=== PATIENT | male | born 1965 | race Caucasian/White ===

== ENCOUNTER 2023-05-14 10:34 | Inpatient (IN) | payer OTHER, SELFPAY ==
[2023-05-14] VITALS (30 sets, daily range): BP systolic 77–160; BP diastolic 45–87; PULSE 64–79; RESP 14–25; TEMP 36.5–36.8; O2SAT 95–100; BMI 27.8
--- NOTE | 2023-05-14 | ECHO_ITS ---
Patient Info Name: Elie Ayers Age: 57 years : 1965 Gender: Male Ht: 73 in Wt: 205 lbs BSA: 2.20 m2 HR: 78 bpm BP: 134 / 70 mmHg Heart Rhythm: Sinus Rhythm Technical Quality: Fair Exam Date: 05/14/2023 3:52 PM Exam Location: Echo Lab Exam Room: ICU2 Patient Status: Inpatient Admit Date: 05/14/2023 Staff Ordering Physician: Sung Nieves MD Machine Operators: Vinita Crooks RDCS Attending Provider: Sami Ewing MD Exam Type: CA echo doppler color flow Study Info Indications - CHEST STEMI S/P CATH Complete two-dimensional, color flow and Doppler transthoracic echocardiogram is performed. Summary 1. Complete two-dimensional, color flow and Doppler transthoracic echocardiogram is performed. 2. Normal left ventricular size with normal global systolic function. 3. Hypokinesia of the apical anterior wall and apex. 4. No valvular dysfunction. Left Ventricle Left ventricular chamber dimension is normal. Left ventricular systolic function is normal, estimated at 50-55%. The left ventricular diastolic function is grade I diastolic dysfunction. Right Ventricle Right ventricular chamber dimension is normal. Left Atria Left atrial chamber dimension is normal. Right Atria Right atrial chamber dimension is normal. Aortic Valve The aortic valve is normal. Pulmonic Valve The pulmonic valve is normal. Mitral Valve The mitral valve has normal leaflets. Tricuspid Valve The tricuspid valve leaflets are normal. Pericardium/Pleural The pericardium appears normal. Aorta The aortic root size at the sinus of Valsalva is normal. Left Ventricular Outflow Tract Name Value Normal LVOT 2D LVOT Diameter 2.1 cm LVOT Doppler LVOT Peak Gradient 5 mmHg LVOT Mean Gradient 2 mmHg LVOT VTI 21 cm LVOT VTI/AV VTI Ratio 0.8 LVOT Stroke Volume 70 ml LVOT CO 14.8 l/min LVOT CI 6.7 l/min/m2 Pulmonic Valve Name Value Normal RVOT Doppler RVOT Peak Gradient 2 mmHg PV Doppler PV Peak Gradient 3 mmHg Mitral Valve Name Value Normal MV Doppler MV Decel [place] 249 cm/s2 MV PHT 76 ms MV Area (PHT) 2.9 cm2 4.0-5.0 MV Diastolic Function MV E Peak Velocity 65 cm/s MV A Peak Velocity
--- NOTE | 2023-05-14 10:31 | ECG_ITS ---
Rate CT QRSd QT QTc P QRS T Severity 61 144 89 392 398 56 7 32 No Severity Defined SINUS RHYTHM DELAYED PRECORDIAL R/S TRANSITION ST ELEVATION IN ANTEROLAT/INF LEADS- PROBABLY EARLY REPOLARIZATION ABNORMALITY BASELINE ARTIFACT- I, II, III, AVR, AVL BORDERLINE ECG Electronically Signed On 05-14-2023 11:45:37 DIGITAL ARCHIVIST by Kenny Naranjo D.O. NO PREVIOUS ECG AVAILABLE FOR COMPARISON [id number] MTDD
[2023-05-14] MEDS: HEPARIN SODIUM 5,000 UNITS/ML VIAL 4000 UNITS IV PUSH (10:38)
--- NOTE | 2023-05-14 10:44 | PC.NURSE ---
chest pressure incresing to 4/10
--- NOTE | 2023-05-14 10:45 | ECG_ITS ---
Measurements Intervals [place] Rate: 81 P: 66 NV: 153 QRS: -20 QRSD: 133 T: 91 QT: 343 QTc: 400 Interpretive Statements SINUS RHYTHM VENTRICULAR COUPLET AND FREQUENT VENTRICULAR PREMATURE COMPLEXES INTRAVENTRICULAR CONDUCTION DELAY ANTEROLATERAL ST ELEVATION MYOCARDIAL INJURY- ACUTE BASELINE WANDER- I, II, AVR, AVL, AVF, V1-V6 ABNORMAL ECG COMPARED TO ECG 05/14/2023 10:31:46 INTRAVENTRICULAR CONDUCTION DELAY NOW PRESENT ACUTE ANTEROLATERAL INFARCT NOW PRESENT Electronically Signed On 05-14-2023 14:02:08 CLINICAL NURSING INTERN by Kenny Naranjo D.O.
--- NOTE | 2023-05-14 10:49 | PC.NURSE ---
pt c/o increased cp. sr with runs of v tach noted on monitor. bp 69/49
--- NOTE | 2023-05-14 10:50 | ED.CHESTPAIN ---
HPI - Chest Pain General Chief Complaint: Chest Pain Stated Complaint: stemi Time Seen by Provider: 05/14/23 10:34 History of Present Illness HPI narrative: Patient is a 57-year-old male who presents ER with concerns for STEMI. 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 Impression some his chest. Associated with diaphoresis and nausea. EMS with pre-hospital activation given significant ST elevation in the precordial leads. Patient did receive nitroglycerin and pain resolved in ST elevations began to improve. STEMI was activated in the ER and catheterization team at bedside. Subsequent EKG shows normal sinus rhythm without ST elevation. Possible vasospasm. Patient without pain at this time. Related Data Home Medications Medication Instructions Recorded Confirmed aspirin 81 mg capsule,delayed 81 mg PO DAILY 05/14/23 05/14/23 release insulin glargine 100 unit/mL 15 unit subcut BID 05/14/23 05/14/23 subcutaneous solution (Lantus U-100 Insulin) insulin lispro-aabc 100 unit/mL 1 sliding scale dose subcut 05/14/23 05/14/23 subcutaneous solution (Lyumjev USEASDIRECTD U-100 Insulin) Allergies Allergy/AdvReac Type Severity Reaction Status Date / Time No Known Allergies Allergy Verified 05/14/23 10:38 Review of Systems Review of Systems: All systems reviewed & are unremarkable except as noted in HPI and below Constitutional: Constitutional: Denies chills, Denies fatigue and Denies fever(s) Comments: + diaphoresis ENT: Denies nasal congestion and Denies sore throat Cardiovascular: Cardiovascular: Reports chest pain, Denies rapid heart rate and Denies radiating jaw, neck or arm pain Respiratory: Respiratory: Denies cough and Denies dyspnea Gastrointestinal: Gastrointestinal: Denies abdominal pain, Reports nausea and Denies vomiting [facility] Past Medical History Medical History (Updated 05/14/23 @ 18:19 by Jayme Falcon MD) Diabetes mellitus Surgical History Surgical History (Updated 05/14/23 @ 18:16 by Jayme Falcon MD) No pertinent past surgical history Social History Social History Smoking status: Never smoker Alcohol intake: current Drinks per week: 1 Lack of Transportation: No Lack of Food: Never True Current Housing: I Have Housing Concerned About Future Housing: No Difficulty Paying Gas/Electric Bills: No Difficulty Paying for Meds: No Currently Unemployed: No Education: Trade/Vocational Certificate Difficulty w/ Childcare or Family Care: No Spiritual care concerns: No Exam Narrative: GENERAL: Well-appearing, well-nourished, and in no acute distress. HEAD: Normocephalic, atraumatic. ENT: Mucous membranes moist. NECK: Supple. CHEST: Clear to auscultation. No respiratory distress. HEART: Regular rate and rhythm. Normal peripheral pulses. ABDOMEN: Soft, nontender, nondistended. EXTREMITIES: Normal range of motion. No edema. SKIN: Warm, dry, no rash. NEURO: Alert and oriented x3. PSYCH: Normal mood and affect. Course Course Emergency Course: Patient was initially resting comfortably and in no distress. Suddenly he had return of chest discomfort became ashen and pale. He was hypotensive. Repeat EKG showing STEMI and patient also began having runs of V-tach that would self resolve. Code STEMI called again and patient taken to metallurgical laboratory assistant. Patient did receive heparin 4000 units as well as oral aspirin by EMS. Care discussed with both the rn observation and the cardiology team. Vital Signs Vital signs: Vital Signs Temperature 97.7 F 05/14/23 10:30 Pulse Rate 74 05/14/23 10:30 Respiratory Rate 18 05/14/23 10:30 Blood Pressure 133/87 05/14/23 10:30 Pulse Oximetry 98 05/14/23 10:30 Oxygen Delivery Room Air 05/14/23 10:30 Temperature 97.9 F 05/14/23 13:15 Pulse Rate 76 05/14/23 18:00 Respiratory Rate 15 05/14/23 18:00 Blood Pressure 142/77 H 05/14/23 18:0
--- NOTE | 2023-05-14 10:53 | PC.NURSE ---
tombstones noted on monitor. bp 86/53. additional ns bolus hung and infusing without difficulty placed 15 l nrb. pts contacted on pts cell phone and made aware of pts status. instructed to come to icu waiting room upon arrival.
[2023-05-14 11:18] LABS: Basophils Absolute Auto 0.1 K/mm3 (0.0-0.1); Basophils Percent Auto 0.9 % (0.2-1.2); Eosinophils Absolute Auto 0.1 K/mm3 (0-0.3); Hematocrit 44.6 % (42.0-52.0); Hemoglobin 14.9 g/dL (14.0-18.0); Immature Granulocyte Absolute 0.01 K/mm3 (0.00-0.031); Immature Granulocyte Percent A 0.2 % (0-0.5); Lymphocytes Percent Auto 35.9 % (18.3-44.2); Mean Corpuscular HGB Conc 33.4 g/dl (32-36); Mean Corpuscular Hemoglobin 31.1 pg (26-34); Mean Corpuscular Volume 93.1 fl (80-100); Mean Platelet Volume 10.2 fl (7.4-10.4); Monocytes Absolute Auto 0.5 K/mm3 (0.1-0.6); Monocytes Percent Auto 7.9 % (2.6-8.5); Neutrophils Absolute Auto 3.2 K/mm3 (1.3-6.7); Neutrophils Percent Auto 54.1 % (45.5-73.1); Platelet Count Result 260 k/mm3 (150-375); Red Blood Count 4.79 M/mm3 (4.6-6.20); Red Cell Distribution Width 12.1 % (11.5-14.5); White Blood Count 5.9 K/mm3 (4.5-10.0)
[2023-05-14 11:28] LABS: Prothrombin Time 13.1 Seconds (11.1-14.7)
[2023-05-14 11:29] LABS: Alanine Aminotransferase 29 U/L (6-50); Albumin Level 4.1 g/dL (3.5-5.1); Alkaline Phosphatase 92 U/L (38-126); Anion Gap 10 mmol/L (8-16); Aspartate Amino Transferase 32 U/L (17-59); Bilirubin,Total 0.6 mg/dL (0.2-1.3); Blood Urea Nitrogen 12 mg/dL (9-20); Calcium 8.6 mg/dL (8.4-10.2); Carbon Dioxide 21 mmol/L (22-30); Chloride 105 mmol/L (98-107); Cholesterol 250 mg/dL (0-200); Estimated CRCL calculation 92 ml/min; Estimated Glomerular Filt Rate > 60; Glucose 253 mg/dL (65-110); HDL Direct 59 mg/dL; Partial Thromboplastin Time 28.1 SECONDS (22.3-36.8); Potassium 3.9 mmol/L (3.4-5.0); Sodium 136 mmol/L (137-145); Triglycerides 66 mg/dL (<150)
--- NOTE | 2023-05-14 11:32 | ECG_ITS ---
Measurements Intervals [place] Rate: 61 P: 56 RI: 144 QRS: 7 QRSD: 89 T: 32 QT: 392 QTc: 398 Interpretive Statements SINUS RHYTHM DELAYED PRECORDIAL R/S TRANSITION BASELINE ARTIFACT- I, II, III, AVR, AVL BORDERLINE ECG NO PREVIOUS ECG AVAILABLE FOR COMPARISON Electronically Signed On 05-14-2023 11:42:07 BLOW MACHINE TENDER STARCH SPRAYING by Kenny Naranjo D.O.
--- NOTE | 2023-05-14 11:33 | ECG_ITS ---
Measurements Intervals [place] Rate: 69 P: 47 ND: 143 QRS: 25 QRSD: 99 T: 34 QT: 385 QTc: 413 Interpretive Statements SINUS RHYTHM DELAYED PRECORDIAL R/S TRANSITION BORDERLINE ST ABNORMALITY- HIGH LATERAL LEADS BORDERLINE ECG COMPARED TO ECG 05/14/2023 10:45:47 STEMI RESOLVED VENTRICULAR ECTOPICS RESOLVED Electronically Signed On 05-14-2023 14:03:23 TRANSFUSION NURSE by Kenny Naranjo D.O.
--- NOTE | 2023-05-14 11:39 | WPDCARDPROC ---
Cardiac Cath Procedure Note Date of procedure:: 05/14/23 Performing physician:: Sami Ewing MD Indication:: anterior ST-elevation NV Brief clinical history:: this is a 57-year-old man without previous cardiac history. He he does have established diagnosis of diabetes. The patient was brought to the hospital by EMS because of significant chest pain that began this morning. ECG in the field showed impressive anterior current of injury. He was given nitroglycerin on route to the hospital and by report his symptoms resolved and his ECG on arrival here was unremarkable. STEMI was initially declared in the canceled when his ECG normalized. While in the emergency room he began to have recurrent chest pain and recurrent ST segment elevation and so STEMI was again reactivated. Because of this there was some delay in bringing him to the oven laborer Procedure Procedure performed:: emergency coronary angiography emergency PCI (ANNEMARIE) to the proximal LAD left ventriculography Sedation/Medication given:: no sedation administered Access site:: right femoral artery Estimated blood loss:: 25 cc Procedure note:: patient was brought to the cardiac oven laborer in the emergent setting described above. The right femoral triangle was prepped and draped in the usual fashion. Anesthesia was provided with 1% lidocaine infiltrated locally. Using the modified Seldinger technique the femoral artery was punctured and a 6 [place] vascular sheath was placed. After this I used a 6 [place] CLS 3.5 guiding catheter to engage inject the left coronary artery. After the 2nd injection of the left coronary the patient did go into pulseless sustained ventricular tachycardia. This was terminated with 2 shocks at 200 joule. Following this further angiography was performed of the left coronary and emergency PCI was carried out of the proximal LAD as detailed below. Prior to PCI the patient was given 180 mg of oral Brilinta and was systemically anticoagulated with bolus and infusion of Angiomax. He had received a loading dose of aspirin in the emergency room. Following completion of PCI to the LAD as described below the guiding catheter was withdrawn and a 5 [place] JR4 catheter was used to engage inject the right coronary artery in orthogonal projections. Following this a 5 [place] angled pigtail catheter was used to perform left ventriculography in the 30 degree LANDERS projection. The sheath was then sutured into position the patient was taken to the ICU for post mi/PCI recovery. Patient had no evidence of a groin hematoma upon leaving the cardiac catheterization lab. Findings:: Hemodynamics: The central aortic pressure was 145 over 76 left ventricle 145/88 end-diastolic pressure 20 there is no gradient on pullback across the aortic valve. Left ventricle: The LV is of normal size the anterior wall, apex and anterolateral segments are markedly hypodynamic the global ejection fraction is 35% by visual estimation. The left main coronary artery is short and nicely patent the left anterior descending is a large caliber vessel extending down to the apex. There is a subtotal stenosis of 99% in the LAD shortly after the ostium. The remainder of the LAD is free of significant disease. There is ROBERT 2 flow in the vessel at the time of initial angiography. The circumflex is a medium caliber vessel giving rise to 1 significant marginal branch the circumflex system is free of significant disease. The right coronary artery is large caliber dominant to the posterior circulation. The right coronary artery has minimal luminal irregularities but no angiographically significant disease. Intervention: The left coronary artery was engaged using a 6 [place] CLS 3.5 guiding catheter. I used a 0.014 BMW coronary wire advancing through the proximal LAD advancing the wire down into the apical segment of the LAD. The lesion was pre-dilated using a 3.5 x 20 mm Lino balloon
[2023-05-14 11:41] LABS: LDL Cholesterol Direct 147 mg/dL
[2023-05-14 11:49] LABS: Troponin I 0.745 ng/mL (0.000-0.034)
--- NOTE | 2023-05-14 11:54 | ADMGEN ---
This patient, Elie Ayers, was admitted to Intensive Care Unit-2. Patient/family oriented to hospital policies and general routines including ID bracelet, bed and alarms, visiting hours, pain management, procedures, bathroom and other care routines, personal items, smoking policy, room service/diet, and visiting hours. Information on how to activate the Rapid Response Team has been discussed. Patient/Family are encouraged to report perceived risks to care and to ask questions if they do not understand what they are told or what they should do.
--- NOTE | 2023-05-14 11:56 | WPDCNINT ---
Assessment and Plan Assessment and plan (1) STEMI (ST elevation myocardial infarction): Code(s): I21.3 - ST elevation (STEMI) myocardial infarction of unspecified site Status: Acute Assessment and Plan: Status post PCI and drug-eluting stent placement to LAD Aspirin, losartan, on beta-naila, Brilinta, Aldactone, rosuvastatin ordered Check echo ICU telemetry monitoring for any arrhythmias Sheath will be removed as per Cardiology orders (2) Ischemic cardiomyopathy: Code(s): I25.5 - Ischemic cardiomyopathy Status: Acute Assessment and Plan: Left anterior wall appeared to be started on the ventriculogram Check echocardiogram Medical management as above (3) Diabetes mellitus: Code(s): E11.9 - Type 2 diabetes mellitus without complications Status: Acute Assessment and Plan: Continue Lantus, with meal insulin and sliding scale Check HbA1c (4) Ventricular tachycardia: Code(s): I47.20 - Ventricular tachycardia, unspecified Status: Acute Assessment and Plan: Secondary to IA. now patient has been revascularized Monitor in ICU. Will start antiarrhythmic medication if arrhythmias recur Plan DVT prophylaxis -received Angiomax Stress ulcer prophylaxis -NA Nutrition -diabetic diet Code Status - Full Code Case discussed with Cardiology Total Critical Care Time - 30 minutes Due to a high probability of clinically significant, life threatening deterioration, the patient required my highest level of preparedness to intervene emergently and I personally spent this critical care time directly and personally managing the patient. This critical care time included obtaining a history; examining the patient; pulse oximetry; ordering and review of studies; arranging urgent treatment with development of a management plan; evaluation of patient's response to treatment; frequent reassessment; and discussions with other providers. It was exclusive of separately billable procedures and treating other patients and teaching time. Please see Assessment and Plan section and the rest of the note for further information on patient assessment and treatment Gluing Pressman Consult Note Consult date: 05/14/23 Reason for consult: STEMI HPI: Elie Ayers is a 57 year old male with past medical history of diabetes who presented ER with chief complaint of chest pain this this morning. Initial eKG showed ST elevation which resolved with nitroglycerin does and resolution of chest pain. In ER patient's chest pain record with abnormality in the EKG. Cardiology was consulted. And had episode of V-tach requiring DC cardioversion in the ER. Patient was taken to cardiac catheterization lab where he underwent PCI. In laboratory tech patient had 2 more episodes of V-tach requiring DC cardioversion. Patient had 99% blockage of LAD which was treated with balloon angioplasty and drug-eluting stent placement. Ventriculogram 6 showed starting of anterior wall and EF of 35%. Patient is now being admitted to ICU for further evaluation management. Patient states that he started having heartburn like chest pain this morning when he woke up which got worse as the day went. He rated at 6/10 with no radiation. No nausea vomiting palpitation. He felt short of breath later in the course when he came to ER. Denies any other complaints. States he was feeling fine yesterday with no symptoms. He states the pain is down to 1/10 at this time. All other systems were reviewed and were negative. Review of Systems Review of Systems: All systems reviewed & are unremarkable except as noted in HPI and below (HPI) [facility] Past Medical History Medical History (Updated 05/14/23 @ 12:00 by Sung Nieves MD) Diabetes mellitus Social History Social History Smoking status: Never smoker Alcohol intake: current Drinks per week: 1 Lack of Transportation: No Lack of Food: Never True Current Housing: I Have Housing Concerne
[2023-05-14] MEDS: METOPROLOL SUCCINATE EXT REL 12.5 MG TABCR PO (12:52)
[2023-05-14] MEDS: SODIUM CHLORIDE 0.9% IV 1,000 ML 125 ML IV CONT (12:52)
[2023-05-14 13:12] LABS: Glucose Point of Care 231 mg/dl (65-105)
[2023-05-14 14:14] LABS: Hemoglobin A1C 8.2 % (<5.7)
[2023-05-14 17:08] LABS: Glucose Point of Care 191 mg/dl (65-105)
[2023-05-14] MEDS: INSULIN ASPART (*BKC) 100 UNITS/ML SUB-Q (17:41)
[2023-05-14] MEDS: INSULIN GLARGINE (*BKC) 100 UNITS/ML 15 UNITS SUB-Q (20:53)
[2023-05-14] MEDS: TICAGRELOR 90 MG TABLET PO (20:54)
[2023-05-14 21:05] LABS: Glucose Point of Care 190 mg/dl (65-105)
[2023-05-15] VITALS (9 sets, daily range): BP systolic 116–135; BP diastolic 55–76; PULSE 58–72; RESP 14–18; TEMP 36.8–37.1; O2SAT 95–99
[2023-05-15 04:34] LABS: Basophils Absolute Auto 0.1 K/mm3 (0.0-0.1); Basophils Percent Auto 0.7 % (0.2-1.2); Eosinophils Absolute Auto 0.1 K/mm3 (0-0.3); Eosinophils Percent Auto 0.8 % (0-4.4); Hematocrit 44.7 % (42.0-52.0); Hemoglobin 15.1 g/dL (14.0-18.0); Immature Granulocyte Absolute 0.01 K/mm3 (0.00-0.031); Immature Granulocyte Percent A 0.1 % (0-0.5); Lymphocytes Absolute Auto 1.83 K/mm3 (0.9-3.2); Lymphocytes Percent Auto 24.7 % (18.3-44.2); Mean Corpuscular HGB Conc 33.8 g/dl (32-36); Mean Corpuscular Hemoglobin 31.5 pg (26-34); Mean Corpuscular Volume 93.3 fl (80-100); Mean Platelet Volume 9.8 fl (7.4-10.4); Monocytes Absolute Auto 0.6 K/mm3 (0.1-0.6); Monocytes Percent Auto 7.4 % (2.6-8.5); Neutrophils Absolute Auto 4.9 K/mm3 (1.3-6.7); Neutrophils Percent Auto 66.3 % (45.5-73.1); Platelet Count Result 246 k/mm3 (150-375); Red Blood Count 4.79 M/mm3 (4.6-6.20); Red Cell Distribution Width 12.1 % (11.5-14.5); White Blood Count 7.4 K/mm3 (4.5-10.0)
[2023-05-15 04:44] LABS: Alanine Aminotransferase 29 U/L (6-50); Albumin Level 3.7 g/dL (3.5-5.1); Alkaline Phosphatase 96 U/L (38-126); Anion Gap 6 mmol/L (8-16); Aspartate Amino Transferase 64 U/L (17-59); Bilirubin,Total 0.9 mg/dL (0.2-1.3); Blood Urea Nitrogen 11 mg/dL (9-20); Calcium 8.6 mg/dL (8.4-10.2); Carbon Dioxide 26 mmol/L (22-30); Chloride 105 mmol/L (98-107); Estimated CRCL calculation 103 ml/min; Estimated Glomerular Filt Rate > 60; Glucose 203 mg/dL (65-110); Magnesium 1.9 mg/dL (1.6-2.3); Potassium 4.4 mmol/L (3.4-5.0); Sodium 137 mmol/L (137-145)
--- NOTE | 2023-05-15 05:11 | ECG_ITS ---
Measurements Intervals [place] Rate: 67 P: 29 RI: 144 QRS: -10 QRSD: 105 T: 35 QT: 385 QTc: 408 Interpretive Statements SINUS RHYTHM BORDERLINE R WAVE PROGRESSION, ANTERIOR LEADS BORDERLINE ECG COMPARED TO ECG 05/14/2023 12:43:08 NO SIGNIFICANT CHANGES Electronically Signed On 05-15-2023 9:41:43 HEALTH CARE LIAISON by Kenny Naranjo D.O.
--- NOTE | 2023-05-15 08:21 | WPDINTPN ---
Progress Note: A&P Assessment and Plan (1) STEMI (ST elevation myocardial infarction): Code(s): I21.3 - ST elevation (STEMI) myocardial infarction of unspecified site Status: Acute Assessment and Plan: Status post PCI and drug-eluting stent placement to LAD Aspirin, losartan, on beta-naila, Brilinta, Aldactone, rosuvastatin ordered Echo reviewed Continue telemetry monitoring for any arrhythmias (2) Ischemic cardiomyopathy: Code(s): I25.5 - Ischemic cardiomyopathy Status: Acute Assessment and Plan: Left anterior wall appeared to be started on the ventriculogram Echocardiogram reviewed Medical management as above (3) Diabetes mellitus: Code(s): E11.9 - Type 2 diabetes mellitus without complications Status: Acute Assessment and Plan: Continue Lantus, with meal insulin Increase sliding scale HbA1c 8.2 (4) Ventricular tachycardia: Code(s): I47.20 - Ventricular tachycardia, unspecified Status: Acute Assessment and Plan: Secondary to NM. now patient has been revascularized and no recurrence youth nutritional monitor Will start antiarrhythmic medication if arrhythmias recur Plan DVT prophylaxis -I expect patient to ambulate today. SCDs while in bed Stress ulcer prophylaxis -NA Nutrition -diabetic diet Code Status - Full Code Transfer out of ICU today Subjective Date/time seen: 05/15/23 Overnight events reviewed. Afebrile. Sheath removed. No arrhythmias overnight Vital signs stable Denies any complaints feels good. Would like to go home. Chest pain. Patient denies fever, chest pain, shortness of breath, cough, nausea vomiting, abdominal pain,, diarrhea, headache or constipation. All other systems were reviewed and were negative On room air Review of Systems Review of Systems: All systems reviewed & are unremarkable except as noted in HPI and below (HPI) Exam Narrative: General: Pt is alert awake and in NAD Lungs/Chest: Trachea central Clear BS B/L, No crackles or wheezing. Cardiac: RRR. Normal S1 S2. No murmurs Circulation: Pedal pulses are intact and symmetrical. Right groin shows no hematoma or swelling around it. Mild soreness to palpation Abdomen: Normal bowel sounds.. Soft. NT. ND. Extremities: No clubbing, cyanosis or edema. Warm : [place] in place Neurologic: Follows commands. Moves all 4 extremities PERRL Skin: No Rash Objective Data Vital Signs Vital Signs: Vital Signs - 24 hr 05/14/23 10:30 05/14/23 10:53 05/14/23 10:50 Temperature 36.5 C Pulse Rate 74 Pulse Rate [Left Pedal (Dorsalis Pedis) Palpation] Pulse Rate [Right Pedal (Dorsalis Pedis) Palpation] Pulse Rate [Right Posterior Tibial Palpation] Respiratory Rate 18 15 Blood Pressure 133/87 86/53 L 86/53 L Pulse Oximetry 98 100 Oxygen Delivery Room Air 05/14/23 10:51 05/14/23 10:52 05/14/23 12:00 Temperature Pulse Rate 70 Pulse Rate [Left Pedal (Dorsalis Pedis) Palpation] Pulse Rate [Right Pedal (Dorsalis Pedis) Palpation] Pulse Rate [Right Posterior Tibial Palpation] Respiratory Rate 25 H 22 H Blood Pressure 77/45 L Pulse Oximetry 100 100 Oxygen Delivery 05/14/23 12:00 05/14/23 12:30 05/14/23 13:15 Temperature 36.6 C 36.6 C Pulse Rate 70 71 79 Pulse Rate [Left Pedal (Dorsalis Pedis) Palpation] Pulse Rate [Right Pedal (Dorsalis Pedis) Palpation] Pulse Rate [Right Posterior Tibial Palpation] Respiratory Rate 14 15 14 Blood Pressure 151/74 H 158/73 H Pulse Oximetry 98 99 99 Oxygen Delivery 05/14/23 13:16 05/14/23 12:52 05/14/23 13:30 Temperature Pulse Rate 73 77 70 Pulse Rate [Left Pedal (Dorsalis Pedis) Palpation] Pulse Rate [Right Pedal (Dorsalis Pedis) Palpation] Pulse Rate [Right Posterior Tibial Palpation] Respiratory Rate 14 15 Blood Pressure 160/81 H 148/75 H Pulse Oximetry 99 100 Oxygen Delivery 05/14/23 13:45 05/14/23 14:00 05/14/23 14:00 Temperature
[2023-05-15] MEDS: INSULIN ASPART (*BKC) 100 UNITS/ML SUB-Q (08:44)
[2023-05-15] MEDS: ROSUVASTATIN 10 MG TABLET 20 MG PO (08:45)
[2023-05-15] MEDS: TICAGRELOR 90 MG TABLET PO (08:45)
[2023-05-15] MEDS: ASPIRIN 81 MG CHEWABLE TABLET PO (08:45)
[2023-05-15] MEDS: LOSARTAN POTASSIUM 25 MG TABLET PO (08:45)
[2023-05-15] MEDS: METOPROLOL SUCCINATE EXT REL 50 MG TABCR PO (08:45)
[2023-05-15] MEDS: SPIRONOLACTONE 25 MG TABLET PO (08:46)
[2023-05-15] MEDS: INSULIN GLARGINE (*BKC) 100 UNITS/ML 15 UNITS SUB-Q (09:01)
[2023-05-15 09:12] LABS: Glucose Point of Care 264 mg/dl (65-105)
--- NOTE | 2023-05-15 10:25 | PM.DS ---
DS: Admitting Diagnosis Discharge Date 05/15/2023 Admitting Diagnosis STEMI DS: Discharge Diagnosis Discharge Diagnosis (1) STEMI (ST elevation myocardial infarction): Code(s): I21.3 - ST elevation (STEMI) myocardial infarction of unspecified site Status: Acute (2) Ischemic cardiomyopathy: Code(s): I25.5 - Ischemic cardiomyopathy Status: Acute (3) Diabetes mellitus: Code(s): E11.9 - Type 2 diabetes mellitus without complications Status: Acute (4) Ventricular tachycardia: Code(s): I47.20 - Ventricular tachycardia, unspecified Status: Acute DS: Summary Hospital Course Reason for hospitalization: STEMI Hospital Course: Patient presented with an anterior STEMI. Underwent emergency cardiac catheterization that showed: 1.? ? Right coronary artery dominant circulation with coronary disease presenting with anterior ST-elevation LA with initial resolution of symptoms in the emergency room but then subsequent recurrence of symptoms and brought emergently to the home performance laborer 2. ? Successful emergency revascularization of the LAD using the 4mm x 22 mm Medtronic Resolute Chase drug-eluting stent 3. ? No significant left main circumflex or right coronary disease 4. ? Stunning of the anterolateral wall with low ejection fraction hopefully and expectedly most of this is stunned rather than infarct 5. ? Ventricular tachycardia occurring in the home performance laborer as detailed above which was terminated electrically. Post PCI, patient did well without any recurrence of chest pain. No arrhythmias noted after revascularization was done. No post PCI complications. Echocardiogram shows normal LVEF at 50-55%, hypokinesis of the apical anterior wall and apex, and no significant valvular dysfunction. Patient to be on ASA 81mg once daily indefinitely. Brilinta 90mg BID for at least 1 year. Lengthy discussion with the patient regarding importance of being compliant to DAPT and the risks and implications of stent thrombosis. Patient started on Spironolactone, Losartan, Crestor, Toprol. Referral to cardiac rehab placed. Status at Discharge Functional status at discharge: independent ambulation Overall status at discharge: patient is back to baseline Time Spent with Patient Time attestation: Total time spent providing and/or coordinating discharge services: Exam Const: General: comfortable and no acute distress HENMT: Mouth: Yes moist mucous membranes Eyes: General: appearance normal, both eyes and all related structures Sclera: sclerae normal Neck: Neck: supple Resp: Effort & Inspection: normal respiratory effort Cardio: Rate: regular rate Rhythm: regular rhythm Heart sounds: no murmurs Skin: General skin exam: normal color Psych: Mental Status: mental status grossly normal Affect: normal affect DS: Data Data Completed and Pending Labs on day of discharge: Labs from last 24 hours 05/15/23 05/15/23 05/14/23 08:42 04:29 20:52 WBC 7.4 RBC 4.79 Hgb 15.1 Hct 44.7 MCV 93.3 MCH 31.5 MCHC 33.8 RDW 12.1 Plt Count 246 MPV 9.8 Immature Gran % (Auto) 0.1 Neut % (Auto) 66.3 Lymph % (Auto) 24.7 [place] % (Auto) 7.4 Eos % (Auto) 0.8 Baso % (Auto) 0.7 Lymph # (Auto) 1.83 [place] # (Auto) 0.6 Eos # (Auto) 0.1 Baso # (Auto) 0.1 Abs Immat Gran (auto) 0.01 Absolute Neuts (auto) 4.9 Absolute Nucleated RBC 0.0 Nucleated RBC % 0.0 PT INR APTT Sodium 137 Potassium 4.4 Chloride 105 Carbon Dioxide 26 Anion Gap 6 L BUN 11 Creatinine 0.80 Estim Creat Clear Calc 103 Estimated GFR > 60 Glucose 203 H POC Capillary Glucose 264 H 190 H Hemoglobin A1c Calcium 8.6 Magnesium 1.9 Total Bilirubin 0.9 AST 64 H ALT 29 Alkaline Phosphatase 96 Troponin I Total Protein 7.0 Albumin 3.7 Triglycerides Cholesterol LDL Cholesterol Direct HDL Direct Blood T
--- NOTE | 2023-05-15 12:36 | PCCPR ---
Cardiopulmonary Rehab Services flyer was given to patient.
[2023-05-23 08:18] LABS: Glucose Point of Care 210 mg/dl (65-105)
--- NOTE | 2023-06-05 12:08 | PM.IMHP ---
H&P: HPI History of Present Illness Date/Time: 05/14/23 Chief Complaint: This is a 57-year-old patient came to the emergency room a short time ago with chest pain. The patient came by EMS and in the field STEMI was declared. Apparently he was given aspirin and nitroglycerin sublingually which alleviated his symptoms and upon arrival in the emergency room he was initially comfortable and reported no ongoing symptoms. While being evaluated in the emergency room however chest pain with diaphoresis did recur he also had an episode of ventricular tachycardia. ST segment elevation also began to recur. In this setting the STEMI team has been activated and he is being prepared for emergency coronary angiography in that setting. The past medical history is remarkable for diabetes mellitus. Review of Systems Review of Systems: ROS unobtainable: Yes unobtainable due to medical condition [facility], [facility] Past Medical History Medical History (Updated 05/14/23 @ 18:19 by Jayme Falcon MD) Diabetes mellitus Surgical History Surgical History (Updated 05/14/23 @ 18:16 by Jayme Falcon MD) No pertinent past surgical history Social History Social History Smoking status: Never smoker Alcohol intake: current Drinks per week: 1 Lack of Transportation: No Lack of Food: Never True Current Housing: I Have Housing Concerned About Future Housing: No Difficulty Paying Gas/Electric Bills: No Difficulty Paying for Meds: No Currently Unemployed: No Education: Trade/Vocational Certificate Difficulty w/ Childcare or Family Care: No Spiritual care concerns: No Meds Home Medications and Allergies Home Medications Medication Instructions Recorded Confirmed Type insulin glargine 100 unit/mL 15 unit subcut BID 05/14/23 05/14/23 History subcutaneous solution (Lantus U-100 Insulin) insulin lispro-aabc 100 unit/mL 1 sliding scale dose subcut 05/14/23 05/14/23 History subcutaneous solution (Lyumjev USEASDIRECTD U-100 Insulin) aspirin 81 mg chewable tablet 81 mg PO DAILY@0800 #90 tabs 05/15/23 Rx (Children's Aspirin) losartan 25 mg tablet 25 mg PO DAILY #90 tabs 05/15/23 Rx metoprolol succinate 50 mg 50 mg PO QAM #90 tabs 05/15/23 Rx tablet,extended release 24 hr rosuvastatin 20 mg tablet 20 mg PO DAILY #90 tabs 05/15/23 Rx spironolactone 25 mg tablet 25 mg PO DAILY #90 tabs 05/15/23 Rx ticagrelor 90 mg tablet (Brilinta) 90 mg PO Q12HR #180 tabs 05/15/23 Rx Allergies Allergy/AdvReac Type Severity Reaction Status Date / Time No Known Allergies Allergy Verified 05/14/23 10:38 Exam Const: Other: Well-developed well-nourished white male appearing his stated age he is in moderate distress with chest pain HENMT: Mouth: Yes moist mucous membranes Eyes: Sclera: sclerae normal Neck: Neck: supple and no JVD Other: Carotid impulses are normal bilateral Resp: Effort & Inspection: normal respiratory effort Auscultation: clear to auscultation bilaterally Cardio: Rate: regular rate Rhythm: regular rhythm Other: No murmur, S4 gallop is audible GI: GI Palp: Yes Soft to palpation Auscultation: normal bowel sounds Skin: General skin exam: normal color Neuro: Other: Alert and oriented x3 Extrem: Other: No edema, good distal perfusion Assessment and Plan Assessment and plan (1) STEMI (ST elevation myocardial infarction): Code(s): I21.3 - ST elevation (STEMI) myocardial infarction of unspecified site Status: Acute Plan This is a 57-year-old man presenting with chest pain and stuttering symptoms with stuttering, dynamic anterior wall ST segment elevation when he has significant chest pain. He is now being prepared for emergency angiography and revascularization as indicated by the findings. Sami Ewing MD [facility]
== END 2023-05-15 12:30 | disposition home or self-care (01) | DRG 322 ==
LOC: ANHED 11:15 → ANHICU 11:30
PROVIDERS: Internal Medicine; Admitting Provider Specialist; Emergency Provider Emergency Medicine; Visit Provider Internal Medicine
PROC: 4A023N7 Measurement of Cardiac Sampling and Pressure, Left Heart, Percutaneous Approach (ICD-10-PCS; CPT 93452; principal; 2023-05-14 10:55)
PROC: 027034Z Dilation of Coronary Artery, One Artery with Drug-eluting Intraluminal Device, Percutaneous Approach (ICD-10-PCS; 2023-05-14 10:55)
DX: I21.3 ST elevation (STEMI) myocardial infarction of unspecified site (principal); I47.29 Other ventricular tachycardia; I25.10 Atherosclerotic heart disease of native coronary artery without angina pectoris; I25.5 Ischemic cardiomyopathy; E11.9 Type 2 diabetes mellitus without complications; Z79.82 Long term (current) use of aspirin; Z79.4 Long term (current) use of insulin
CPT/HCPCS: 36415; 80053; 80061; 82948; 83036; 83735; 84484; 85025; 85610; 85730; 86850; 86900; 86901; 93005; 93306; 93458; 96374; 99291; A9270; C1725; C1769; C1874; C1887; C1894; C9606; J0171; J0583; J1644; J1815; J2371; J7030